=== PATIENT | male | born 1940 | race Caucasian/White ===

== ENCOUNTER → 2023-04-16 10:15 | Outpatient (REF) | payer MEDICARE, OTHER, SELFPAY | LOC: RCS 10:15 | PROVIDERS: ATTENDING PHYSICIAN Nurse Practitioner Gerontology; FAMILY PHYSICIAN Family Medicine | DX: I48.0 Paroxysmal atrial fibrillation (principal) | CPT/HCPCS: 93225; 93226 ==

== ENCOUNTER 2023-04-18 10:44 | Emergency (ER) | payer MEDICARE, OTHER, SELFPAY ==
[2023-04-18 10:49] VITALS: BP 143/78
--- NOTE | 2023-04-18 10:55 | ED.GENMED ---
History of Present Illness
<Linda Jewell PA-C - Last Filed: 04/18/23 13:18>
General
Chief Complaint: Breathing Problem
Source: patient
Time Seen by Provider: 04/18/23 10:53
Nursing documentation reviewed up to this point in time: agreed with
Travel History
Have you had any contact with someone who has COVID-19?: No
Do you have any symptoms of coronavirus? Fever > 100 degrees, chills, cough, shortness of breath, sore throat, loss of taste or smell, muscle aches, or headache?: No
History of Present Illness
History of Present Illness:
This is a 82 y/o male with past medical history of lung cancer, A-fib on, AAA, CAD, hypertension presenting to emergency department today with shortness of breath x 1 day. He states that he was recently diagnosed with A-fib in March and was going
to drop off his holter monitor today when he called the office, reported shortness of breath, and the nurse from the office recommended that they come in over the phone. He states that he has never really had problems with shortness of breath
before. He states that he is however getting over a recent viral illness over the past 2 weeks, and he has some residual symptoms from that. He also has associated swelling in his legs that started around 2 weeks ago but it has been going down
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 Per family, patient does not have a formal diagnosis of heart failure. Patient denies chest pain, nausea, vomiting. He does have a history of lung cancer but has been out of
treatment for over 12 years. The shortness of breath is positional and improves when he sits up and is worse with lying down. He states that he is also heard audible wheezing occasionally at night the past 2 weeks.
Past History
<Linda Jewell PA-C - Last Filed: 04/18/23 13:18>
Past History
ED Past Medical History: CAD, CVA, GERD and HTN
ED Past Surgical History: Appendectomy, Cardiac, Tonsilectomy and Other (Ophthalmic)
Social History
Tobacco: Former smoker
Living: with family
Employment: Retired
Review of Systems
<Linda Jewell PA-C - Last Filed: 04/18/23 13:18>
Review of Systems
All Other Systems: ROS reviewed and negative except as documented in HPI and ROS
Phy Exam
<Linda Jewell PA-C - Last Filed: 04/18/23 13:18>
Physical Exam
Physical Exam:
Vitals: Vitals are stable, not hypoxic
General: Patient is well appearing in no acute distress
Skin: Warm and dry, scattered seborrheic keratosis on the back
Cardiac: Regular rate and rhythm, no murmurs. +JVD.
Pulm: Normal respiratory effort, some mild crackles heard at the lower lung bases but no wheezing, no rhonchi. No tripoding, no pursed lip breathing.
Peripheral Vascular: 2+ DP/PT pulses bilaterally. Bilateral lower extremity pitting edema.
Abdomen: No pulsatile abdominal mass. No abdominal tenderness.
Neuro: Patient is awake and alert, oriented x 3.
Scores
<Linda Jewell PA-C - Last Filed: 04/18/23 13:18>
Heart Failure Risk
Heart Failure Risk Score: Yes
History of Stroke or TIA: Yes
History of intubation for respiratory distress: No (unknown)
Heart rate on ED arrival >/= 110: No
SaO2 <90% on arrival on room air: No
HR >/=110 during 3min walk test (or too ill to perform test): No
ECG has acute ischemic changes: No
Urea >/=12mmol/L (BUN 33.6mg/dL): No
Serum CO2>/=35mmol/L: No
Troponin I or T elevated to MA Level (0.4mg/dL): No
NT-proBNP >/=5,000ng/L (5,000pg/ml): No
HF Risk Score: 1
Admission Status: MEDIUM RISK 5.1% Consider observation or discharge to home with homecare & f/u visit to PCP/[employer]ging [employer] [facility], or SNF for treatment
Course
<Linda Jewell PA-C - Last Filed: 04/18/23 13:18>
Orders/Labs/Results
Orders:
Orders
04/18/23 11:09
Electrocardiogram (*1) Urgent
Reason for Study: Other
Other Reason for Exam: Respiratory Distress
Cardiac Monitoring- Treatment ONCE
EKG- Treatment ONCE
IV Insert/Care/Rem.- Treatment PRN
CR Chest - 2 Views Urgent
Comment:
Reason For Exam: respiratory distress
O2 Therapy [RESP] Urgent
Titrate/Wean O2 to maintain O2 sat greater than (%): 93
Special Instructions: TO MAINTAIN CONTINUOUS O2 SATS >/= 93%
Pulse Ox/cont/shift [RESP] Urgent
Quantity: 1
Special Instructions: continuous pulse ox
04/18/23 11:10
Complete Blood Count/With Diff Urgent
Comprehensive Metabolic Panel Urgent
NT-proBNP Urgent
Troponin I Urgent
04/18/23 12:33
Furosemide [Lasix] 40 mg IV NOW STA
Abnormal Lab Results
04/18/23
11:10
WBC 4.6 L 10^3/uL
(4.8-10.8)
RBC 3.24 L 10^6/uL
(4.70-6.10)
Hgb 11.0 L g/dL
(13.0-18.0)
Hct 32.5 L %
(39.0-52.0)
MCV 100.3 H fL
(80.0-94.0)
MCH 34.0 H pg
(27.0-31.0)
RDW 15.4 H %
(11.5-14.5)
Monocytes % 10.5 H %
(1.7-9.3)
Sodium 131 L mmol/L
(135-145)
Chloride 97 L mmol/L
(98-107)
Carbon Dioxide 31 H mmol/L
(22-30)
Glucose 103 H mg/dl
(70-99)
04/18/23 11:10
04/18/23 11:10
Vital Signs
Initial and Last Documented VS:
Initial Vital Signs
Temp Pulse Resp BP Pulse Ox
98.3 F 67 18 143/78 98
04/18/23 10:49 04/18/23 10:49 04/18/23 10:49 04/18/23 10:49 04/18/23 10:49
Last Documented Vital Signs
Temp Pulse Resp BP Pulse Ox
98.3 F 65 20 134/77 98
04/18/23 10:49 04/18/23 12:38 04/18/23 12:30 04/18/23 12:38 04/18/23 12:30
<Fidel Lynch, DO - Last Filed: 04/18/23 11:26>
Orders/Labs/Results
Orders:
Orders
04/18/23 11:09
Electrocardiogram (*1) Urgent
Reason for Study: Other
Other Reason for Exam: Respiratory Distress
Cardiac Monitoring- Treatment ONCE
EKG- Treatment ONCE
IV Insert/Care/Rem.- Treatment PRN
CR Chest - 2 Views Urgent
Comment:
Reason For Exam: respiratory distress
O2 Therapy [RESP] Urgent
Titrate/Wean O2 to maintain O2 sat greater than (%): 93
Special Instructions: TO MAINTAIN CONTINUOUS O2 SATS >/= 93%
Pulse Ox/cont/shift [RESP] Urgent
Quantity: 1
Special Instructions: continuous pulse ox
04/18/23 11:10
Complete Blood Count/With Diff Urgent
Comprehensive Metabolic Panel Urgent
NT-proBNP Urgent
Troponin I Urgent
04/18/23 12:33
Furosemide [Lasix] 40 mg IV NOW STA
Abnormal Lab Results
04/18/23
11:10
WBC 4.6 L 10^3/uL
(4.8-10.8)
RBC 3.24 L 10^6/uL
(4.70-6.10)
Hgb 11.0 L g/dL
(13.0-18.0)
Hct 32.5 L %
(39.0-52.0)
MCV 100.3 H fL
(80.0-94.0)
MCH 34.0 H pg
(27.0-31.0)
RDW 15.4 H %
(11.5-14.5)
Monocytes % 10.5 H %
(1.7-9.3)
Sodium 131 L mmol/L
(135-145)
Chloride 97 L mmol/L
(98-107)
Carbon Dioxide 31 H mmol/L
(22-30)
Glucose 103 H mg/dl
(70-99)
04/18/23 11:10
04/18/23 11:10
Vital Signs
Initial and Last Documented VS:
Initial Vital Signs
Temp Pulse Resp BP Pulse Ox
98.3 F 67 18 143/78 98
04/18/23 10:49 04/18/23 10:49 04/18/23 10:49 04/18/23 10:49 04/18/23 10:49
Last Documented Vital Signs
Temp Pulse Resp BP Pulse Ox
98.3 F 65 20 134/77 98
04/18/23 10:49 04/18/23 12:38 04/18/23 12:30 04/18/23 12:38 04/18/23 12:30
<Linda Jewell PA-C - Last Filed: 04/18/23 13:18>
MDM/Problems Addressed
Differential Diagnosis Includes:
Differentials include acute CHF, pulmonary embolism, upper respiratory tract infection, afib
MDM/Problems Addressed:
Shortness of breath
Chronic conditions affecting care: HTN, CAD, Arrhythmia (Newly diagnosed A- and March on Eliquis), Cancer and Other (History of tobacco)
Acute Exacerbation and/or Progression of Chronic Illness: HTN
<Linda Jewell PA-C - Last Filed: 04/18/23 13:18>
*Radiology
Radiology exam reviewed: preliminary read by ED provider (Mild pulmonary edema)
*Pulse Oximetry
Patient hypoxic: no
*Mud Engineer Interpretation
Rate: normal
Interpretation: normal
Heart Rate: 68
Rhythm: sinus
*Critical Care Note
Total Time (30-74mins, 75-104mins- exclusive of procedures): Not Applicable
Data Reviewed
Review of Other/Old Records Reveals: Records (Reviewed ER physician documentation from 11/05/2015), Discharge Summary (Reviewed discharge summary from 03/04/2014) and Other (No echocardiogram since 2015)
Source: patient
Prescriptions/Medications Considered But Not Given:
n/a
Further Testing Considered But Not Given:
Considered CT of the chest to evaluate for pulmonary embolism however patient is anticoagulated, not hypoxic, normal heart rate, and no acute respiratory
<Linda Jewell PA-C - Last Filed: 04/18/23 13:18>
Patient Management
Discussion with other providers: Senior Data Scientist (Dr. Candelario [facility] cardiology)
Escalation/DeEscalation of care consider admission/obs:
82-year-old male past medical history of hypertension, CAD, AAA, lung cancer is presenting to emergency department today with shortness of breath x 1 day. He is also had lower extremity swelling the past 2 weeks and was recently started on 40 mg of
Lasix but he has not received a formal diagnosis of heart failure. On physical exam, he is very well-appearing, not hypoxic, but he does have some mild crackles in lower lung bases as well as lower extremity edema. He does state that his lower
extremity edema has been improving and that he has been losing weight. His chest x-ray reveals mild pulm edema which believe is a result of his shortness of breath and I do not think he is having a PE.
He did not take his Lasix this morning because he was on his way to the cardiology office and did not want to have a bathroom emergency. He also reports that he has been getting over a viral illness recently which might also be responsible for the
shortness of breath. Here in emergency department we gave him some and patient did report some improvement in shortness of breath and feels well. I spoke to Dr. Mccabe from his cardiology office and reviewed plan to send patient home with
close follow-up with cardiology, Dr. Valdez in agreement with plan. We will send him home advised him to take his oral dose of Lasix today's that he had a double dose today but return to his normal dosing going forward
<Linda Jewell PA-C - Last Filed: 04/18/23 13:18>
Update Note
Update Note:
10:50 am---Initially evaluated patient
ED Attending Note
<Linda Jewell PA-C - Last Filed: 04/18/23 13:18>
-
Portions of this chart may have been created with voice recognition software.� Occasional wrong word or��sound alike� substitutions may have occurred due to the inherent limitations of voice recognition software.
<Fidel Lynch DO - Last Filed: 04/18/23 11:26>
ED Attending Note
ED Attending Note:
I evaluated the patient at bedside. The patient has some shortness of breath over the last few days which worsened today. He had new onset A-fib about 2+ weeks ago placed on anticoagulation. He started having swelling of the lower extremities
about a week ago. He had increased weight gain in comparison to his weight from several months ago up to 149 now and about 140 then. He does have bilateral lower extremity edema. He is on Lasix. I feel PE less likely as his room air sats are
99%, his heart rate is in the 60s, he has nonlabored breathing and is already on anticoagulation.
Discharge Plan
Departure
Patient Disposition: Home (Routine Discharge)
Date of Disposition: 04/18/23
Time of Disposition: 12:58
Patient with high blood pressure during this ER visit?: Yes
Condition: Good
Discharge Problem:
Shortness of breath
Instructions: Shortness of Breath (Dyspnea) (DC), *CBC Heart Failure Instructions, BLOOD PRESSURE
Prescriptions:
No Action
Plavix
75 mg PO DAILY
Atorvastatin
40 mg PO DAILY
atenolol 25 MG tablet
1 tab PO DAILY
Calcium
500 tab PO DAILY
Multivitamin
1 tab PO DAILY
Blakeslee 3-6-9 1,200 mg Softgel
1 tab PO DAILY
oxycodone-acetaminophen 5 MG/325 MG tablet
1 tab PO Q4HPRN PRN (Reason: severe pain) Qty: 40 0RF
ibuprofen 600 MG tablet
600 mg PO Q6HPRN PRN (Reason: mild to moderate soreness) Qty: 0 0RF
famotidine 20 MG tablet
20 mg PO DAILY Qty: 30 0RF
Rx Instructions:
*over the counter med*
take one tab daily in AM and may discontinue after one month
Referrals:
Geovany Beyer MD [Family Provider] -
Activity Restrictions/Additional Instructions:
Please follow up with Dr. Kate next week.
Please take your oral lasix when you get home.
Please return if you have worsening shortness of breath, chest pain, back pain, syncopal episodes, fevers or chills, weakness, or other concerning signs or symptoms.
Interventions
Interventions:
*Risk Screen - Suicide Last Done: 04/18/23 10:49
*General Assessment Last Done: 04/18/23 10:49
*Neglect/Abuse Screening Last Done: 04/18/23 10:49
ED- Fall Risk Assessment Last Done: 04/18/23 11:08
*ED COVID-19 Vaccine History Last Done: 04/18/23 10:49
*Nursing Disposition Last Done: 04/18/23 13:09
ED- Cardiac Assessment Last Done: 04/18/23 11:08
ED- Pulmonary Assessment Last Done: 04/18/23 11:08
[2023-04-18 11:06] VITALS: BP 141/70
[2023-04-18 11:20] LABS: % Basophils 0.4 % (0-2); % Eosinophils 0.2 % (0-6); % Immature Granulocytes 0.2 % (0-0.5); % Lymphocytes 27.5 % (20.5-51.1); % Monocytes 10.5 % (1.7-9.3); % Neutrophils 61.2 % (42.2-75.2); Absolute Lymphocytes 1.3 10^3/uL (1.2-3.4); Absolute Monocytes 0.5 10^3/uL (0.1-0.6); Absolute Neutrophils 2.8 10^3/uL (1.4-6.5); Hematocrit 32.5 % (39.0-52.0); Mean Corp Hgb Conc. 33.8 g/dL (33.0-37.0); Mean Corpuscular Volume 100.3 fL (80.0-94.0); Mean Platelet Volume 9.9 fL (7.4-10.4); Nucleated Red Blood Cells % 0 % (-); Platelet Count 180 10^3/uL (130-400); Red Blood Cell Count 3.24 10^6/uL (4.70-6.10); Red Cell Dist. Width 15.4 % (11.5-14.5); White Blood Cell Count 4.6 10^3/uL (4.8-10.8)
[2023-04-18 11:40] LABS: Troponin I < 0.012 ng/ml
[2023-04-18 11:44] LABS: ALT (SGPT) 45 U/L (0-50); AST (SGOT) 45 U/L (17-59); Albumin 3.7 g/dl (3.5-5.0); Alkaline Phosphatase 57 U/L (38-126); Blood Urea Nitrogen 17 mg/dl (9-20); Calcium 8.8 mg/dl (8.4-10.2); Carbon Dioxide 31 mmol/L (22-30); Chloride 97 mmol/L (98-107); Glucose 103 mg/dl (70-99); Potassium 4.1 mmol/L (3.5-5.1); Sodium 131 mmol/L (135-145); Total Protein 6.3 g/dl (6.3-8.2); eGFR > 60.00
[2023-04-18 12:00] VITALS: BP 134/77
[2023-04-18 12:03] LABS: NT-proBNP 2080 pg/ml
[2023-04-18] MEDS: LASIX 40 MG IV (12:38)
== END 2023-04-18 13:10 | disposition home or self-care (01) ==
LOC: EMR 10:44
PROVIDERS: EMERGENCY PHYSICIAN Emergency Medicine; FAMILY PHYSICIAN Family Medicine
DX: R06.02 Shortness of breath (principal); I48.91 Unspecified atrial fibrillation; I25.10 Atherosclerotic heart disease of native coronary artery without angina pectoris; I10 Essential (primary) hypertension; K21.9 Gastro-esophageal reflux disease without esophagitis; Z79.01 Long term (current) use of anticoagulants; Z86.73 Personal history of transient ischemic attack (TIA), and cerebral infarction without residual deficits; Z86.79 Personal history of other diseases of the circulatory system; Z87.891 Personal history of nicotine dependence; Z90.49 Acquired absence of other specified parts of digestive tract
CPT/HCPCS: 99283; 71046; 80053; 83880; 84484; 85025; 93005

== ENCOUNTER → 2023-04-30 06:56 | Day surgery (SDC) | payer MEDICARE, OTHER, SELFPAY | LOC: CATH 06:56 | PROVIDERS: ATTENDING PHYSICIAN Internal Medicine; FAMILY PHYSICIAN Family Medicine; OTHER PHYSICIAN Internal Medicine Cardiovascular Disease | DX: I48.91 Unspecified atrial fibrillation (principal); I08.3 Combined rheumatic disorders of mitral, aortic and tricuspid valves; I08.8 Other rheumatic multiple valve diseases; I77.810 Thoracic aortic ectasia; Z79.01 Long term (current) use of anticoagulants | CPT/HCPCS: 93312; 93320; 93325; 92960; 93005 ==

== ENCOUNTER → 2023-05-28 07:27 | Outpatient (REF) | payer MEDICARE, OTHER, SELFPAY | LOC: RAD 07:27 | PROVIDERS: ATTENDING PHYSICIAN Internal Medicine Cardiovascular Disease; FAMILY PHYSICIAN Family Medicine | DX: I71.21 Aneurysm of the ascending aorta, without rupture (principal) | CPT/HCPCS: 71250 ==

== ENCOUNTER → 2023-11-25 11:06 | Outpatient (REF) | payer MEDICARE, OTHER, SELFPAY | LOC: RCS 11:06 | PROVIDERS: ATTENDING PHYSICIAN Nurse Practitioner; FAMILY PHYSICIAN Family Medicine | DX: I48.19 Other persistent atrial fibrillation (principal); R06.09 Other forms of dyspnea; I25.5 Ischemic cardiomyopathy; I50.20 Unspecified systolic (congestive) heart failure; I25.10 Atherosclerotic heart disease of native coronary artery without angina pectoris | CPT/HCPCS: 93306 ==

== ENCOUNTER → 2023-12-19 11:06 | Outpatient (REF) | payer MEDICARE, OTHER, SELFPAY ==
[2023-12-19 13:25] LABS: Blood Urea Nitrogen 18 mg/dl (9-20); Calcium 9.3 mg/dl (8.4-10.2); Carbon Dioxide 30 mmol/L (22-30); Chloride 95 mmol/L (98-107); Glucose 91 mg/dl (70-99); Potassium 4.2 mmol/L (3.5-5.1); Sodium 136 mmol/L (135-145); eGFR > 60.00
== END ==
LOC: REG 11:06
PROVIDERS: ATTENDING PHYSICIAN Nurse Practitioner; FAMILY PHYSICIAN Family Medicine
DX: I48.0 Paroxysmal atrial fibrillation (principal); I48.92 Unspecified atrial flutter; I50.22 Chronic systolic (congestive) heart failure; I25.10 Atherosclerotic heart disease of native coronary artery without angina pectoris
CPT/HCPCS: 36415; 80048

== ENCOUNTER → 2024-09-09 10:47 | Outpatient (REF) | payer MEDICARE, OTHER, SELFPAY ==
[2024-09-09 11:48] LABS: Hematocrit 37.1 % (39.0-52.0); Hemoglobin 12.7 g/dL (13.0-18.0); Mean Corp Hgb Conc. 34.2 g/dL (33.0-37.0); Mean Corpuscular Volume 97.9 fL (80.0-94.0); Nucleated Red Blood Cells % 0 % (-); Platelet Count 152 10^3/uL (130-400); Red Cell Dist. Width 16.1 % (11.5-14.5)
[2024-09-09 12:06] LABS: ALT (SGPT) 17 U/L (0-50); AST (SGOT) 32 U/L (17-59); Albumin 4.6 g/dl (3.5-5.0); Alkaline Phosphatase 70 U/L (38-126); Blood Urea Nitrogen 12 mg/dl (9-20); Calcium 9.6 mg/dl (8.4-10.2); Carbon Dioxide 27 mmol/L (22-30); Chloride 97 mmol/L (98-107); Glucose 100 mg/dl (70-99); HDL Cholesterol 73 mg/dl; LDL Cholesterol, Calculated 42 mg/dl; Potassium 3.5 mmol/L (3.5-5.1); Sodium 134 mmol/L (135-145); Total Protein 7.1 g/dl (6.3-8.2); Very Low Density Lipoprotein 21 mg/dl (0-30); eGFR > 60.00
[2024-09-09 12:36] LABS: PSA, Total - Diagnostic 11.70 ng/ml (0.0-4.0); TSH 0.75 uIU/ml (0.47-4.68)
== END ==
LOC: REG 10:47
PROVIDERS: ATTENDING PHYSICIAN Family Medicine
DX: I48.19 Other persistent atrial fibrillation (principal); I25.5 Ischemic cardiomyopathy; I10 Essential (primary) hypertension; E78.2 Mixed hyperlipidemia; Z00.00 Encounter for general adult medical examination without abnormal findings; I25.10 Atherosclerotic heart disease of native coronary artery without angina pectoris; C34.90 Malignant neoplasm of unspecified part of unspecified bronchus or lung; Z13.39 Encounter for screening examination for other mental health and behavioral disorders; R97.20 Elevated prostate specific antigen [PSA]
CPT/HCPCS: 36415; 80053; 80061; 84153; 84443; 85025

== ENCOUNTER → 2024-09-09 15:51 | Outpatient (REF) | payer MEDICARE, OTHER, SELFPAY | LOC: RAD 15:51 | PROVIDERS: ATTENDING PHYSICIAN Family Medicine | DX: Z85.118 Personal history of other malignant neoplasm of bronchus and lung (principal); R63.4 Abnormal weight loss; C34.90 Malignant neoplasm of unspecified part of unspecified bronchus or lung | CPT/HCPCS: 71250 ==